=== PATIENT | male | born 1950 | race African-American/Black ===

== ENCOUNTER → 2017-08-26 | Outpatient (CLI) | payer MEDICARE, OTHER ==
[~2017-08-26] MED LIST: TRAM50 PO
--- NOTE | 2017-08-26 11:52 | RADRPT ---
EXAM DATE/TIME: 08/26/2017 11:39 [place] COMPARISON: No previous studies available for comparison. INDICATIONS : Sprained hip. MEDICAL HISTORY : None. SURGICAL HISTORY : None. ENCOUNTER: Initial ACUITY: 2 days PAIN SCORE: 3/10 LOCATION: Right Hip. FINDINGS: A two view examination of the right hip was performed. The primary and secondary trabecular pattern of the femoral neck is intact. Moderate joint space narrowing with subchondral sclerosis and cyst for mation and mild osteophytes. The acetabulum is grossly intact. Soft tissues are grossly unremarkable. CONCLUSION: 1. Moderate degenerative osteoarthritis. 2. No acute fracture or dislocation. Zhao Rivero MD on August 26, 2017 at 11:49 Board Certified Radiologist. This report was verified electronically.
== END ==
LOC: HRAD 11:16
PROVIDERS: ATTEND General Practice
DX: M25.551 Pain in right hip (principal)
CPT/HCPCS: 73502